=== PATIENT | female | born 1965 | race Caucasian/White ===

== ENCOUNTER → 2017-12-15 | Outpatient (CLI) | payer OTHER ==
[~2017-12-15] MED LIST: ASPIR 8181 MG PO; ASPIR-TRIN325 MG PO; BIRTH CONTROL; CELEXA10 MG PO; COUMADIN 5 MG TA5 M1; DICLOFENAC SODI75 MG PO; DOCUSATE SODIU100 MG PO; HYDROCODON-ACE1 EAC7 PO; IBUPROFEN 200200 M1 PO; KRILL OIL 1,001 EAC1 PO; LOVENOX; METAMUCIL POWD822 G2 PO; MILK OF MA2400 MG/10 PO; PERCOCET PO; PRAVASTATIN SOD20 MG PO; PRILOSEC 20 MG20 MG PO; TYLENOL EXTRA500 MG PO; UNICOMPLEX M TA1 TA1 PO; VITAMIN B PO; XARELTO10 MG PO
== END ==
LOC: M.MRI 10:40
DX: S83.232A Complex tear of medial meniscus, current injury, left knee, initial encounter (principal); M17.12 Unilateral primary osteoarthritis, left knee; X58.XXXA Exposure to other specified factors, initial encounter; Y93.89 Activity, other specified; Y92.89 Other specified places as the place of occurrence of the external cause; Y99.8 Other external cause status

== ENCOUNTER 2018-01-26 06:32 | Inpatient (IN) | payer OTHER ==
[2018-01-14 11:11] LABS: URINE BILIRUBIN NEGATIVE (Negative); URINE BLOOD NEGATIVE (Negative); URINE CLARITY CLEAR; URINE COLOR YELLOW; URINE GLUCOSE-RANDOM NEGATIVE (Negative); URINE KETONES NEGATIVE (Negative); URINE LEUKOCYTES-REFLEX NEGATIVE (Negative); URINE NITRITE-REFLEX NEGATIVE (Negative); URINE PROTEIN NEGATIVE (Negative); URINE SPECIFIC GRAVITY 1.015 (1.005-1.030); URINE UROBILINOGEN 0.2 E.U./dl (0.2-1.0)
[2018-01-14 11:12] LABS: HEMATOCRIT 43.2 % (37.0-47.0); HEMOGLOBIN 14.2 gm/dL (12.0-15.0); MCH 29.8 pg (26.0-34.0); MCHC 32.8 g/dL (28.0-37.0); MCV 90.9 fL (80.0-100.0); RBC 4.76 mil/uL (4.20-5.00); RDW-CV 14.2 % (10.5-14.5); WBC 6.9 thou/uL (4.0-11.0)
[2018-01-14 11:14] LABS: CALCIUM 9.3 mg/dL (8.5-10.1); CREATININE 0.7 mg/dL (0.6-1.3); POTASSIUM 4.4 mmol/L (3.5-5.1); PROTIME 10.1 Seconds (9.20-11.50)
[2018-01-14 11:19] LABS: ALBUMIN 3.8 g/dL (3.4-5.0); TOTAL BILIRUBIN 0.3 mg/dL (<0.1-1.0); TOTAL PROTEIN 7.3 g/dL (6.4-8.2)
[~2018-01-26] VITALS: Ht 170.2 cm; Wt 122.5 kg
[~2018-01-26 06:32] MED LIST changes: -ASPIR 8181 MG PO; -DOCUSATE SODIU100 MG PO; -HYDROCODON-ACE1 EAC7 PO; -IBUPROFEN 200200 M1 PO; -METAMUCIL POWD822 G2 PO; -MILK OF MA2400 MG/10 PO; -PERCOCET PO; -TYLENOL EXTRA500 MG PO; -XARELTO10 MG PO
[2018-01-26 09:53] VITALS: BP 135/84
[2018-01-26 14:07] VITALS: BP 149/87
--- NOTE | 2018-01-26 14:13 | NUR ---
PATIENT TRANSFERRED FROM PACU TO ROOM 112. ALERT AND ORIENTED. PAIN TOLERABLE. O2 AT 3L. SAT 98% ON 3L. CONT PULSE OX IN PLACE. WATER PROVIDED. DRESSING TO KNEE DRY AND INTACT. POLAR CARE, ASFI, AND SCD'S IN PLACE. VSS. FAMILY AT BEDSIDE. ORIENTED TO ROOM AND BED CONTROLS. CALL LIGHT WITHIN REACH. WILL CONTINUE TO MONITOR.
--- NOTE | 2018-01-26 17:13 | NUR ---
PATIENT REMAINS ALERT AND ORIENTED. PAIN 10/31. HYDROCODONE GIVEN. TOLERATING DINNER. DRESSING TO LEFT KNEE C/D/I. O2 AT 3L. SAT 97% PER CONT PULSE OX. SCD'S, POLAR CARE, AND ASIF IN PLACE. FAMILY AT BEDSIDE. BED ALARM SET. WILL CONTINUE TO MONITOR.
--- NOTE | 2018-01-26 17:13 | NUR ---
RECIEVED O.T. EVAL AND TX ORDERS. WILL DEFER TO P.T. AND NURSING AT THIS TIME. PLEASE ORDER FURTHER O.T. SERVICES IF NEEDED.
[2018-01-26 20:25] VITALS: BP 125/75
[2018-01-27 00:33] VITALS: BP 113/71
[2018-01-27 03:56] VITALS: BP 102/65
[2018-01-27 04:28] LABS: HEMATOCRIT 37.7 % (37.0-47.0); HEMOGLOBIN 12.5 gm/dL (12.0-15.0)
--- NOTE | 2018-01-27 04:55 | NUR ---
PATIENT HAS REMAINED ALERT AND ORIENTED X 4 THROUGHOUT THE SHIFT AND RESTING QUIETLY ON HOURLY ROUNDS. DRESSING LEFT KNEE CLEAN AND DRY WITH HEMOVAC PRESENT. MEDICATED FOR PAIN X 2 OF THIS WRITING TO GOOD EFFECT. BEDPAN USED OVERNIGHT WITH ADEQUATE URINE OUTPUT. CPM INITIATED AT HS. VITAL SIGNS STABLE. CONTINUE TO MONITOR.
[2018-01-27 08:00] VITALS: BP 111/62
--- NOTE | 2018-01-27 16:30 | NUR ---
COULD NOT SEE PT. SHE WAS IN THE SHOWER. REVIEWED CHART AND SPOKE WITH NURSING. SHE LIVES WITH HER AND CHILDREN IN A HOUSE. SHE HAS 10 STAIRS TO GET IN SIDE AND 13 INSIDE. SHE HAS A WALKER AT HOME AND TOILET RISER. 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 SHE WOULD LIKE HOME HEALTH FOR 2 SEEKS THEN GO TO [facility]. THERAPY AT [facility] IN [place]. HER PHARMACY IS [facility] ON [address] CM WILL SEE PT.IN AM.
--- NOTE | 2018-01-27 16:39 | NUR ---
PATIENT REMAINS ALERT AND ORIENTED. PAIN CONTROLLED WITH HYDROCODONE AND OXYIR. DRESSING TO KNEE DRY AND INTACT. POLAR CARE, ASIF, AND SCD IN PLACE. USED CPM X2 THIS SHIFT -5 TO 85 DEGREEES. VOIDING PER TOILET. NO BM. REFUSED MILK OF MAG. TRANSFERS AND AMBULATES WITH STANDBY ASSIST. SHOWERED THIS AFTERNOON- INCISION COVERED WITH PLASTIC BAG. BED/CHAIR ALARM IN USE. CALL LIGHT WITHIN REACH. WILL CONTINUE TO MONITOR.
[2018-01-27 16:55] VITALS: BP 118/73
[2018-01-27 17:23] VITALS: BP 118/73
[2018-01-27 20:20] VITALS: BP 149/68
[2018-01-28 00:07] VITALS: BP 104/55
[2018-01-28 03:41] VITALS: BP 113/68
[2018-01-28 03:44] LABS: HEMATOCRIT 35.4 % (37.0-47.0); HEMOGLOBIN 11.7 gm/dL (12.0-15.0)
--- NOTE | 2018-01-28 05:28 | NUR ---
PATIENT HAS REMAINED ALERT AND ORIENTED X 3 THROUGHOUT THE SHIFT AND RESTING QUIETLY ON HOURLY ROUNDS. UP WITH CGA, WALKER/GAIT BELT. PATIENT IS EVEN ABLE TO GET SURGICAL LEG UP INTO THE BED INDEPENDENTLY. BM THIS AM AFTER HS MILK OF MAGNESIA WITH COLACE. VOIDS ADEQUATELY. DRESSING LEFT KNEE CLEAN AND DRY. VITAL SIGNS STABLE. PROGRESSING WELL TOWARDS DISCHARGE GOALS. CONTINUE TO MONITOR.
[2018-01-28 09:30] VITALS: BP 106/63
--- NOTE | 2018-01-28 12:15 | NUR ---
SPOKE WITH PT. MOTHER IN ROOM. PT.READY TO GO HOME TODAY. SHE SAID SHE DID STAIRS IN THERAPY AND DID WELL. FAMILY ALREADY PICKED UP [facility] AT PHARMACY. EXPLAINED RN WILL GIVE HER PRESCRIPTION FOR PAIN MED AT DISCHARGE. SHE CHOSE TO USE [facility] AT DISCHARGE FOR FIRST 2 WEEKS. DISCUSSED CPM AND POLAR PACK. SHE SAID ,SON AND MOM WILL HELP HER AT DISCHARGE. FAXED REFERRAL AND ORDERS TO [facility]. ALL INFORMATION PLACE IN DISCHARGE INSTRUCTIONS.
[2018-01-28] MEDS ORDERED: HYDROCODON-ACE1 EAC7 PO (14:23)
[2018-01-28] MEDS ORDERED: XARELTO10 MG PO (14:23)
[2018-01-28] MEDS ORDERED: DOCUSATE SODIU100 MG PO (17:37)
[2018-01-28 17:50] VITALS: BP 118/73
[2018-01-28] MEDS ORDERED: MILK OF MA2400 MG/10 PO (17:59)
[2018-01-28 18:00] VITALS: BP 118/73
[2018-01-28] MEDS ORDERED: METAMUCIL POWD822 G2 PO (18:00)
--- NOTE | 2018-01-28 21:13 | NUR ---
ASSUMED CARES OF PT AT 0700. PT IN BED, BED IN LOW LOCKED POSITION. CALL BUTTON AND PERSONAL ITEMS IN PT REACH. PT A&O X4, HRRR PER AUSCULTATION, LCTAB, AFEBRILE, PERRLA, VSS ON RA. EDUCATED ON INCENTIVE SPIROMETER USE. SMALL BM TODAY. RIGHT WRIST IV PATENT TO FLUSH AND SALINE LOCKED. PAIN WELL CONTROLLED WITH ORAL PAIN MEDS. PT UP WITH GAIT BELT AND WALKER/PHYSICAL THERPAY, OT. ASIF HOSE, FOOT PUMPS, POLAR CARE AND CPM IN USE THIS SHIFT. LEFT KNEE SURGICAL SITE DRESSING C/D/I. PT CLEARED FOR DISCHARGE HOME. IV REMOVED. PT BELONGINGS PACKED AND TAKEN BY FAMILY. DISCHARGE EDUCATION, STROKE EDUCATION COMPLETED. PT ESCORTED BY NURSING STAFF VIA TO CAR WITH FAMILY. DISCHARGE COMPLETED AT 1758.
--- NOTE | 2018-01-29 14:11 | PATH ---
[facility] [address] [place] [address] PATHOLOGY RPT PROCEDURE Name: NIGHAT RYAN Room: [address] IN M.R.#: [id number] Admission: 01/26/18 Date of : 63 Discharge: 01/28/18 Report #: [id number] Path Case #: [id number] [facility] Accession Number: [id number] . 01 Material submitted: . LEFT KNEE BONE AND TISSUE . 01 Clinical history: . Left knee degenerative joint disease . 02 Diagnosis: Left knee bone and tissue, total knee replacement. - Benign synovium and meniscus and benign bone and cartilage with severe degenerative changes. ([facility]:pit; 01/28/2018) QTP/01/28/2018 . 02 Electronically signed: . Ankur Longoria MD, Pathologist NPI- [id number] . 01 Gross description: . The specimen is received in formalin, labeled "Nighat Ryan, left knee bone and tissue", are multiple fragments of yellow bone with recognizable portions of the tibial plateau, patella, meniscus (three fragments, measuring 5.0 x 4.0 x 1.5 cm in aggregate) and rubbery arambula-white soft tissue (multiple fragments, measuring 6.0 x 4.5 x 1.2 cm in aggregate). The specimen measures 10.5 x 9.0 x 2.5 in aggregate. Few fragments show an irregular articular cartilage with eburnation. Peripheral osteophytes are present. Bobbin Cleaning Machine Operator sections are submitted in A1 after decalcification. . ([facility]; 01/26/2018) SHS/SHS . 02 Pathologist provided ICD-10: M17.12 . 02 CPT . 402918, [id number] Performed at: 01 [facility] [address] [place] [address] [address], [place] [id number] MD Dmitriy Simon MD Phone: [phone] Performed at: 02 [place] [address] [place], [place] [id number] MD Ankur Longoria MD Phone: [phone]
--- NOTE | 2018-02-16 11:47 | OP ---
[facility] [address] [place] [address] OPERATIVE REPORT Name: MADISON RYAN Room: [address] IN .R.#: [id number] Admission: 01/26/18 Attend Phys: Chema Serna Discharge: 01/28/18 Date of : 63 Report #: [id number] THIS REPORT FOR: //name// CC: Hugo Barraza DATE OF SERVICE: 01/26/2018 PREOPERATIVE DIAGNOSIS: Left knee osteoarthritis. POSTOPERATIVE DIAGNOSIS: Left knee osteoarthritis. PROCEDURE: Left total knee arthroplasty. SURGEON: Clay Paula II, DO. DIGITIZER OPERATOR: ILYA Morfin. ANESTHESIA: General endotracheal. ESTIMATED BLOOD LOSS: 50 mL. ANTIBIOTICS: Ancef preoperatively. DRAINS: Medium Hemovac. COMPLICATIONS: None. CONDITION OF THE PATIENT: Stable to recovery room. IMPLANTS: Listed in operative record and progress note. BRIEF HISTORY: The patient is seen in the preoperative area, preop H and P were performed. Site was marked, questions were answered. Risks and benefits were discussed with the patient in detail about surgery. The patient assumed all the risks and wished to proceed. DESCRIPTION OF PROCEDURE: The patient was taken to operative suite, placed supine on the operating table and given appropriate anesthesia. A well-padded tourniquet applied to upper thigh, which was inflated to 300 mmHg after exsanguination. The operative knee was sterilely prepped and draped. Surgery begun by midline incision, is carried down to the subcutaneous tissues. A medial parapatellar arthrotomy was performed, carried down to bone. The patella was then everted and excess soft tissue removed from the femur. Femoral cutting block was then applied, checked with a drop vanessa for rotational alignment, pinned [address] [address] OPERATIVE REPORT Name: MADISON RYAN Room: [address]#: [id number] Admission: 01/26/18 Attend Phys: Chema Serna Discharge: 01/28/18 Date of : 63 Report #: [id number] in appropriate position and appropriate cuts were made. A 4-in-1 cutting block was then applied, checked for rotational alignment, pinned in appropriate position and appropriate cuts were made. Tibia was exposed and the excess meniscus was removed. Retractor was placed along the collateral ligaments. Tibial cutting block was applied, pinned in appropriate position, checked with drop vanessa for rotational alignment and slope and appropriate cut was made. The tibial bone was then removed. Tibial base plate was then applied, checked for rotational alignment with the drop vanessa and pinned in appropriate position. Femur was then applied. The box cut was reamed. This was then trialed with the appropriate spacer, which showed excellent fit and fill and excellent stability of the knee through all range of motion. The patella was then reamed in appropriate fashion and sized to appropriate size. Three peg holes were drilled, and it was then trialed and showed to have excellent tracking within the groove. These trials were then removed. Tibia was punched in appropriate fashion. Bone ends were cleansed with Pulsavac irrigation. Cement was mixed and applied to the final implants. It was then malleted in position and held the knee in extension and compressed to allow cement to cure. After it cured, excess was removed using [place] and osteotome. The wound was then copiously irrigated, and the final spacer was then malleted in position. Tourniquet was deflated. Hemostasis was obtained with electrocautery. The pain cocktail was injected. PRP gel was sprayed through internal aspect of the knee. The medium Hemovac drain was then applied. Capsule was closed with 2 FiberWire and 1 Vicryl in [id number]-jp-[id number] fashion. Skin was closed with 2-0 Vicryl and running 3-0 Monocryl. Dermabond and sterile dressing applied. Reji wrap and PolarCare applied. The patient transferred to recovery in stable condition. Counts were correct throughout the procedure. <ELECTRONICALLY SIGNED> By: Clay Paula II, DO 02/16/18 1147 [id number] Paula II, DO /nt
[2018-03-10] MEDS ORDERED: TYLENOL EXTRA500 MG PO (12:22)
[2018-03-10] MEDS ORDERED: ASPIR 8181 MG PO (12:22)
[2018-03-10] MEDS ORDERED: IBUPROFEN 200200 M1 PO (12:23)
== END 2018-01-28 17:58 | disposition home or self-care (01) | DRG 470 ==
LOC: M.PRE 06:32 → M.ORTHSURG 08:15 → M.TBA 08:15 → M.PRE 11:11 → M.ORTHSURG 13:44
PROVIDERS: Orthopaedic Surgery; ADMIT Internal Medicine
PROC: 0SRD0J9 Replacement of Left Knee Joint with Synthetic Substitute, Cemented, Open Approach (ICD-10-PCS; principal; 2018-01-26)
DX: M17.12 Unilateral primary osteoarthritis, left knee (principal); F32.9 Major depressive disorder, single episode, unspecified; K21.9 Gastro-esophageal reflux disease without esophagitis; E78.00 Pure hypercholesterolemia, unspecified; Z79.899 Other long term (current) drug therapy; Z88.8 Allergy status to other drugs, medicaments and biological substances; Z91.040 Latex allergy status

== ENCOUNTER → 2018-02-25 | Outpatient (CLI) | payer OTHER ==
[~2018-02-25] MED LIST changes: +ASPIR 8181 MG PO; +DOCUSATE SODIU100 MG PO; +HYDROCODON-ACE1 EAC7 PO; +IBUPROFEN 200200 M1 PO; +METAMUCIL POWD822 G2 PO; +MILK OF MA2400 MG/10 PO; +PERCOCET PO; +TYLENOL EXTRA500 MG PO; +XARELTO10 MG PO
== END ==
LOC: M.RAD 10:43
DX: M17.12 Unilateral primary osteoarthritis, left knee (principal); M25.462 Effusion, left knee; Z96.652 Presence of left artificial knee joint

== ENCOUNTER → 2018-03-04 | Outpatient (CLI) | payer OTHER | LOC: M.MRI 08:02 | DX: S83.231A Complex tear of medial meniscus, current injury, right knee, initial encounter (principal); M17.11 Unilateral primary osteoarthritis, right knee; M25.461 Effusion, right knee; M71.21 Synovial cyst of popliteal space [Baker], right knee; X58.XXXA Exposure to other specified factors, initial encounter; Y93.89 Activity, other specified; Y92.89 Other specified places as the place of occurrence of the external cause; Y99.8 Other external cause status ==

== ENCOUNTER 2018-03-30 06:50 | Inpatient (IN) | payer OTHER ==
[2018-03-18 09:05] LABS: HEMATOCRIT 37.3 % (37.0-47.0); HEMOGLOBIN 12.2 gm/dL (12.0-15.0); MCHC 32.7 g/dL (28.0-37.0); MCV 88.6 fL (80.0-100.0); MPV 9.3 fl. (7.2-11.1); RBC 4.21 mil/uL (4.20-5.00); WBC 6.3 thou/uL (4.0-11.0)
[2018-03-18 09:17] LABS: PROTIME 10.1 Seconds (9.20-11.50)
[2018-03-18 09:22] LABS: URINE BILIRUBIN NEGATIVE (Negative); URINE BLOOD NEGATIVE (Negative); URINE CLARITY CLEAR; URINE COLOR YELLOW; URINE GLUCOSE-RANDOM NEGATIVE (Negative); URINE KETONES NEGATIVE (Negative); URINE LEUKOCYTES-REFLEX TRACE (Negative); URINE NITRITE-REFLEX NEGATIVE (Negative); URINE PROTEIN NEGATIVE (Negative); URINE SPECIFIC GRAVITY <= 1.005 (1.005-1.030); URINE UROBILINOGEN 0.2 E.U./dl (0.2-1.0)
[2018-03-18 09:29] LABS: ALBUMIN 3.5 g/dL (3.4-5.0); CALCIUM 9.4 mg/dL (8.5-10.1); CREATININE 0.7 mg/dL (0.6-1.3); TOTAL BILIRUBIN 0.3 mg/dL (<0.1-1.0); TOTAL PROTEIN 6.9 g/dL (6.4-8.2)
[2018-03-18 09:34] LABS: BACTERIA-REFLEX 1-9 Few /HPF (None Seen); MUCUS 0-3 Light strn/LPF (None Seen); SQUAMOUS 0-3 Few /LPF (0-3); URINE RBC 0-2 Rare /HPF (0-2); URINE WBC-REFLEX 0-5 Rare /HPF (0-5)
[2018-03-18 09:35] LABS: CASTS None Seen /LPF (None Seen); CRYSTALS None Seen /LPF (None Seen)
[~2018-03-30] VITALS: Ht 170.2 cm; Wt 120.2 kg
[~2018-03-30 06:50] MED LIST changes: -PERCOCET PO
[2018-03-30 09:09] VITALS: BP 149/85
--- NOTE | 2018-03-30 09:17 | NUR ---
OT TO DEFER TO P.T. AT THIS TIME. PLEASE ENTER NEW ORDERS FOR OT IF NEEDED.
--- NOTE | 2018-03-30 10:01 | NUR ---
I have reviewed the documentation by FRANK KING from 03/30/18 to 03/30/18 and I concur with it. MEERA, GEOVANNI
--- NOTE | 2018-03-30 16:07 | NUR ---
PATIENT ARRIVED TO UNIT AT 1350. ALERT AND ORIENTED X4. ASSESSMENT COMPLETED AND CHARTED. VSS ON 2 LITERS [address]. NO COMPLAINTS OF PAIN, NAUSEA OR SOA. PATIENT AND FAMILY ORIENTED TO ROOM. FALL CONTRACT SIGNED AND PATIENT VOICED UNDERSTANDING ABOUT FALL SAFETY AND CALLING FOR ASSISTANCE. CALL LIGHT WITHIN REACH. NURSING WILL CONTINUE TO MONITOR.
[2018-03-30 16:20] VITALS: BP 133/78
--- NOTE | 2018-03-30 17:42 | NUR ---
PATIENT REMAINS ALERT AND ORIENTED X4. VITALS REMIAN STABLE ON 2 LITERS 02. PAIN HAS BEEN MANAGED WITH ORAL MEDICATION. PATIENT HAS SUPPORTIVE FAMILY AT BEDSIDE. FLUIDS INFUSING ORDERED. HOURLY ROUNDS MAINTAINED. CALL LIGHT WITHIN REACH. NURSING WILL CONTINUE TO MONITOR.
[2018-03-30 20:10] VITALS: BP 132/83
[2018-03-31 01:24] VITALS: BP 114/70
[2018-03-31 04:23] VITALS: BP 113/70
[2018-03-31 04:41] LABS: HEMATOCRIT 37.7 % (37.0-47.0); HEMOGLOBIN 12.1 gm/dL (12.0-15.0)
--- NOTE | 2018-03-31 07:10 | NUR ---
PATIENT ALERT AND ORIENTED X 4. VITALS STABLE. ON 2L OF OXYGEN. RIGHT KNEE DRESSING C/D/I. CURRENTLY ON CPM. TOLERATED CPM WELL AT HS. PAIN MEDICATION GIVEN APPROXIMATELY EVERY TWO HOURS, EFFECTIVE. HEMOVAC IN PLACE. UP WITH ASSIST X 1 TO BSC. FLUIDS INFUSING PER ORDER. HOURLY ROUNDS. BED ALARM IN USE. NURSING WILL CONTINUE TO MONITOR.
[2018-03-31 09:33] VITALS: BP 131/77
[2018-03-31 13:51] VITALS: BP 131/77
--- NOTE | 2018-03-31 14:00 | NUR ---
CALLED IN [facility] PRESCRIPTION, WRITTEN TO PT.'S PHARMACY. COPAY IS $0. PT.ASLEEP IN CHAIR. FAMILY IN ROOM. AWAKENDED PT. AND INFORMED OF NO COPAY. SHE SAID SHE FEELS READY TO GO HOME TODAY. SHE HAS A WALKER. DISCUSSED CPM AND POLAR PRIMO. SHE LIKE [facility] LAST TIME WHEN SHE HAD HER OTHER KNEE DONE AND WANTS TO USE THEM AGAIN. FAXED ORDERS AND REFERRAL TO [facility]. [facility] CALLED BACK AND SAID THEY WOULD ACCEPT PT.ON SERVICE.
[2018-03-31] MEDS ORDERED: PERCOCET PO (14:13)
--- NOTE | 2018-03-31 15:21 | NUR ---
ASSUMED CARE OF PATIENT AFTER MORNING REPORT AT APPROX 0720. ALERT AND ORIENTED X4. ASSESSMENT COMPLETED AND CHARTED. VSS ON ROOM AIR. PATIENT HAD NO COMPLAINTS OF NAUSEA OR SOA. PAIN HAS BEEN MANAGED WITH ORAL PAIN MEDICATION. IV FLUIDS DISCONTINUED. ANTIBIOTICS INFUSED ORDERED. IV DISCONTINUED. PATIENT WORKED VERY WELL WITH THERAPY AND DISCHARGED HOME WITH HOME HEALTH AT 1500. ALL PERSONAL BELONGINGS, PRESCRIPTIONS AND DISCHARGE INFORMATION SENT WITH PATIENT UPON DISCHARGE.
--- NOTE | 2018-03-31 22:46 | OP ---
[facility] [address] [place] [address] OPERATIVE REPORT Name: MADISON RYAN Room: [address]R.#: [id number] Admission: 03/30/18 Attend Phys: Chema Serna Discharge: 03/31/18 Date of : 63 Report #: [id number] THIS REPORT FOR: //name// CC: Hugo Barraza DATE OF SERVICE: 03/30/2018 PREOPERATIVE DIAGNOSIS: Right knee osteoarthritis. POSTOPERATIVE DIAGNOSIS: Right knee osteoarthritis. PROCEDURE: Right total knee arthroplasty. SURGEON: Clay Paula II, DO COMMUNITY PLANNING TECHNICIAN: ILYA Morfin ANESTHESIA: General endotracheal. ESTIMATED BLOOD LOSS: 50 mL. ANTIBIOTICS: Ancef preoperatively. DRAINS: Medium Hemovac. COMPLICATIONS: None. CONDITION OF PATIENT: Stable to recovery room. IMPLANTS: Listed in the operative record and progress note. BRIEF HISTORY: The patient was seen in the preoperative area. Preoperative H and P was performed. The patient's site was marked. Questions were answered. Risks and benefits were discussed with the patient in detail about surgery. The patient wished to proceed and assumed all risks. DESCRIPTION OF PROCEDURE: The patient was taken to the operative suite, placed supine on the operating table and given appropriate anesthesia. The patient had a well-padded tourniquet applied to the upper thigh, which was inflated to 300 mmHg after gravity exsanguination. The operative knee was sterilely prepped and draped. Surgery began by a midline incision, was carried down to the subcutaneous tissues. A medial parapatellar arthrotomy was performed and carried down to bone. The patella was then everted and excess soft tissue removed from the femur. The femoral cutting block was then applied, checked [facility] [address] [place] [address] OPERATIVE REPORT Name: MADISON RYAN Room: [address]#: [id number] Admission: 03/30/18 Attend Phys: Chema Serna Discharge: 03/31/18 Date of : 63 Report #: [id number] with a drop vanessa for rotational alignment, pinned into appropriate position and appropriate cuts were made. A 4-in-1 cutting block was then applied, checked for rotational alignment, pinned into appropriate position and appropriate cuts were made. The tibia was then exposed. The excess meniscus was removed. Retractor was placed along the collateral ligaments. The tibial cutting block was then applied, pinned into appropriate position, checked with a drop vanessa for rotational alignment and slope and appropriate cut was made. The tibial bone was removed. The tibial base plate was then applied, checked for rotational alignment with a drop vanessa and pinned into appropriate position. Femur was then applied and box cut was reamed. This was then trialed with appropriate spacer, which showed excellent fit and fill and excellent stability of the knee through all range of motion. The patella was then reamed in appropriate fashion and sized to appropriate size. Three peg holes were drilled and it was then trialled and shown to have excellent flexion and extension and excellent tracking of the patella within the groove. These trials were then removed. The tibia was punched in appropriate fashion. Bone ends were cleansed with Pulsavac irrigation and cement was mixed and applied to the final implants. These were then malleted into position and held the knee in extension and compressed to allow cement to cure. After it cured, excess was removed utilizing a [place] and osteotome. The wound was then copiously irrigated and final spacer was malleted into position. Tourniquet was deflated. Hemostasis was maintained with electrocautery. A pain cocktail was injected. PRP gel was sprayed throughout the internal aspects of the knee. Medium Hemovac drain was then applied. The capsule was closed with #2 FiberWire and #1 Vicryl in kaebyc-tq-cxrym fashion. Skin was closed with 2-0 Vicryl and a running 3-0 Monocryl. Dermabond and sterile dressing was then applied. Reji wrap and PolarCare were applied. The patient transported to the recovery in stable condition. Counts were correct ____. <ELECTRONICALLY SIGNED> By: Clay Paula II, DO 03/31/18 2246 [id number] Paula II, DO /nt
== END 2018-03-31 15:00 | disposition home health service (06) | DRG 470 ==
LOC: M.PRE 06:50 → M.TBA 08:24 → M.PRE 10:11 → M.ORTHSURG 13:49
PROVIDERS: Orthopaedic Surgery; ADMIT Internal Medicine
PROC: 0SRC0J9 Replacement of Right Knee Joint with Synthetic Substitute, Cemented, Open Approach (ICD-10-PCS; principal; 2018-03-31)
DX: M17.0 Bilateral primary osteoarthritis of knee (principal); E66.9 Obesity, unspecified; K21.9 Gastro-esophageal reflux disease without esophagitis; Z96.652 Presence of left artificial knee joint; Z86.718 Personal history of other venous thrombosis and embolism; Z79.01 Long term (current) use of anticoagulants; Z68.41 Body mass index [BMI] 40.0-44.9, adult; Z88.8 Allergy status to other drugs, medicaments and biological substances; Z91.040 Latex allergy status; Z79.82 Long term (current) use of aspirin; Z79.899 Other long term (current) drug therapy

== ENCOUNTER → 2019-08-12 | Day surgery (SDC) | payer OTHER ==
[~2019-08-12] MED LIST changes: +PERCOCET 5-3251 EACH PO; +PERCOCET PO; +SUPER B COMPLE1 EAC2 PO
--- NOTE | ~2019-08-12 | OP ---
[facility] [address] [place] [address] OPERATIVE REPORT Name: MADISON RYAN Room: [facility]#: [id number] Admission: 08/12/19 Attend Phys: Clay Paula II Discharge: Date of : 63 Report #: [id number] THIS REPORT FOR: //name// CC: Hugo Paula DATE OF SERVICE: 08/12/2019 PREOPERATIVE DIAGNOSIS: Right shoulder rotator cuff tear. POSTOPERATIVE DIAGNOSES: 1. Right shoulder rotator cuff tear. 2. Labral tears. 3. Lateral clavicle osteoarthritis. 4. Subacromial impingement. PROCEDURES PERFORMED: 1. Right shoulder arthroscopic surgery with rotator cuff repair. 2. Extensive debridement of glenohumeral joint and labral tears. 3. Lateral clavicle excision. 4. Subacromial decompression. SURGEON: Clay Paula II, DO. SLEEVE IRONER: ILYA Morfin. ANESTHESIA: Per operative record. ESTIMATED BLOOD LOSS: Minimal. ANTIBIOTICS: Per operative record. DRAINS: None. COMPLICATIONS: None. CONDITION: Stable to recovery room. DESCRIPTION OF PROCEDURE: The patient was taken to the operative suite and placed supine on the operative table, given appropriate anesthesia. The patient's right shoulder was sterilely prepped and draped in modified beach chair position. All bony prominences well padded. Surgery began by posterior portal incision. The arthroscope was advanced in the joint. There was shown to be labral tear noted to the superior, inferior as well as anterior and posterior portions of the glenohumeral joint without evidence of biceps tendon tear. Debridement was performed utilizing an anterior [place] [address] OPERATIVE REPORT Name: MADISON RYAN Chema Room: [facility].#: [id number] Admission: 08/12/19 Attend Phys: Clay Paula II Discharge: Date of : 63 Report #: [id number] superior, inferior as well as anterior and posterior portions of the labrum to remove excess bone and cartilage debris as well as labral tears with an extensive debridement being performed. There was shown to be rotator cuff tear noted to the lateral margin with partial articular surface tendon avulsion, greater than 50% of the tendon thickness. The arthroscope was advanced to the subacromial space and subacromial decompression with partial anterior acromioplasty performed due to significant impingement. The distal centimeter clavicle was also excised utilizing shaver and arthroscopic bur due to significant osteoarthritis of the AC joint. Attention was then turned back to the rotator cuff. There was shown to be a bursal sided fraying as well, which was debrided utilizing shaver down to good fresh tissue. A medium arthroscopic bioinductive implant was then placed over the rotator cuff and anchored with PADDY tendon anchors medially and PEEK bone anchor secured laterally to repair the rotator cuff with the appropriate anatomic alignment. Final range of motion shown to have full range of motion of the shoulder without evidence of re-tear of the rotator cuff. The shoulder was then drained arthroscopic fluid, closed with 4-0 nylon in simple fashion. Dermabond and sterile dressings were applied. The patient transported to recovery room in stable condition. Counts were correct throughout the procedure. By: [id number] Paula II, DO /nt
== END | disposition home or self-care (01) ==
LOC: M.SUR 06:38
DX: M75.101 Unspecified rotator cuff tear or rupture of right shoulder, not specified as traumatic (principal); S43.491A Other sprain of right shoulder joint, initial encounter; M19.011 Primary osteoarthritis, right shoulder; M75.41 Impingement syndrome of right shoulder; M17.0 Bilateral primary osteoarthritis of knee; Z98.890 Other specified postprocedural states; Z91.040 Latex allergy status; Z88.8 Allergy status to other drugs, medicaments and biological substances; Z79.82 Long term (current) use of aspirin; Z79.899 Other long term (current) drug therapy; Z79.891 Long term (current) use of opiate analgesic; X58.XXXA Exposure to other specified factors, initial encounter; Y93.89 Activity, other specified; Y92.89 Other specified places as the place of occurrence of the external cause; Y99.8 Other external cause status

== ENCOUNTER → 2020-07-23 | Outpatient (CLI) | payer OTHER | LOC: M.ULTRA 12:30 | PROVIDERS: ATTEND Family Medicine | DX: M79.605 Pain in left leg (principal) ==